=== PATIENT | male | born 1960 | race Hispanic/Latino ===

== ENCOUNTER → 2021-04-21 | Day surgery (SDC) | payer OTHER ==
[2021-04-16 09:15] LABS: BASOPHILS % 0.2 % (0.0-1.0); EOSINOPHILS # (AUTO) 0.2 (0.0-0.4); EOSINOPHILS % 4.2 % (0.0-6.0); HEMATOCRIT 43.2 % (38.2-49.6); HEMOGLOBIN 14.6 g/dL (14.0-18.0); LYMPHOCYTES % 44.6 % (18.0-39.1); MEAN CORPUSCULAR HEMOGLOBIN 30.2 pg (28-32); MEAN CORPUSCULAR HGB CONC 33.8 g/dL (31-35); MEAN CORPUSCULAR VOLUME 89.4 fL (81-99); MONOCYTES # (AUTO) 0.4 (0.2-0.8); MONOCYTES % 8.3 % (4.4-11.3); NEUTROPHILS # (AUTO) 1.9 (2.1-6.9); NEUTROPHILS % 42.5 % (38.7-80.0); PLATELET COUNT 206 x10e3/uL (140-360); RED BLOOD COUNT 4.83 x10e6/uL (4.3-5.7); RED CELL DISTRIBUTION WIDTH 12.4 % (11.7-14.4)
[2021-04-16 10:06] LABS: INR 1.02; PROTHROMBIN TIME 14.1 seconds (11.9-14.5)
[2021-04-16 10:07] LABS: PARTIAL THROMBOPLASTIN TIME 27.6 seconds (23.8-35.5)
[2021-04-16 10:48] LABS: ALBUMIN 4.2 g/dL (3.5-5.0); ALBUMIN/GLOBULIN RATIO 1.2 (0.8-2.0); ANION GAP 14.1 mmol/L (8-16); CALCIUM 9.1 mg/dL (8.4-10.2); CHOL/HDL RATIO 4.3 (3.9-4.7); CREATININE, SERUM 0.84 mg/dL (0.72-1.25); POTASSIUM 4.1 mmol/L (3.5-5.1)
[~2021-04-21] VITALS: Ht 167.6 cm; Wt 95.3 kg
[2021-04-21] VITALS (11 sets, daily range): BP systolic 116–137; BP diastolic 57–75
[~2021-04-21] MED LIST: FENTANYL CITRATE/PF 100MCG/2 ML INJ ONE; GLYBURIDE5 MG PO; HEPARIN SOD (PORCINE) 1000 UNIT/ML 30ML ONE; HEPARIN SOD/SOD CHLORIDE 2,000 ML ONE; IOPAMIDOL 370 MG/ML 200 ML INFUS..BTL INJ ONE; LIDOCAINE HCL 2% LOCAL 20 ML VIAL ONE; LIPITOR20 MG PO; LISINOPRIL10 MG PO; METFORMIN HCL500 MG PO; METOPROLOL SUCC50 MG PO; MIDAZOLAM HCL 2 MG/2 ML VIAL ONE; NITROGLYCERIN/D5W 200 MCG/ML 0 ML ONE; NITROGLYCERIN0.4 MG SL; SODIUM CHLORIDE 0.9% 1000ML 1,000 ML ONE; VERAPAMIL HCL 2.5 MG/ML 2 ML VIAL ONE
== END | disposition home or self-care (01) ==
LOC: CATH LAB 07:49
PROVIDERS: ATTEND Internal Medicine Cardiovascular Disease
DX: I25.810 Atherosclerosis of coronary artery bypass graft(s) without angina pectoris (principal); R94.39 Abnormal result of other cardiovascular function study; Z01.812 Encounter for preprocedural laboratory examination; Z20.822 Contact with and (suspected) exposure to COVID-19; Z79.84 Long term (current) use of oral hypoglycemic drugs; Z79.899 Other long term (current) drug therapy; Z95.1 Presence of aortocoronary bypass graft
CPT/HCPCS: 36415 ×2; 75605; 80053; 80061; 82948; 85025; 85610; 85730; 93459; C1760; C1769; C1894; J2001; J2250; J3010; J7030; Q9967; U0002; 99152; 99153; J1644

== ENCOUNTER 2024-12-19 12:15 | Inpatient (IN) | payer MEDICARE, OTHER ==
[~2024-12-19] VITALS: Ht 167.6 cm; Wt 93.4 kg
[~2024-12-19 12:15] MED LIST changes: -FENTANYL CITRATE/PF 100MCG/2 ML INJ ONE; -HEPARIN SOD (PORCINE) 1000 UNIT/ML 30ML ONE; -HEPARIN SOD/SOD CHLORIDE 2,000 ML ONE; -IOPAMIDOL 370 MG/ML 200 ML INFUS..BTL INJ ONE; -LIDOCAINE HCL 2% LOCAL 20 ML VIAL ONE; -MIDAZOLAM HCL 2 MG/2 ML VIAL ONE; -NITROGLYCERIN/D5W 200 MCG/ML 0 ML ONE; -SODIUM CHLORIDE 0.9% 1000ML 1,000 ML ONE; -VERAPAMIL HCL 2.5 MG/ML 2 ML VIAL ONE
[2024-12-19] MEDS: SODIUM CHLORIDE 0.9% 500ML 500 ML IV ONE (12:51)
[2024-12-19 12:52] LABS: BASOPHILS % 0.3 % (0.0-1.0); EOSINOPHILS % 3.3 % (0.0-6.0); LYMPHOCYTES % 37.8 % (18.0-39.1); MONOCYTES % 8.1 % (4.4-11.3); NEUTROPHILS % 50.0 % (38.7-80.0); RED CELL DISTRIBUTION WIDTH 12.6 % (11.7-14.4)
[2024-12-19 13:08] LABS: INR 0.93
[2024-12-19 13:16] LABS: EST GLOMERULAR FILTRATION RATE 100.0 ML/MIN (>=60)
[2024-12-19] MEDS: ASPIRIN 81 MG CHEW TAB PO ONE (13:48)
[2024-12-19] MEDS: CLOPIDOGREL BISULFATE 75 MG TAB PO ONE (13:48)
[2024-12-19] MEDS ORDERED: ONDANSETRON HCL INJ 2MG/ML 2ML 2 MG/ML VIAL IV PRN (14:00)
[2024-12-19] MEDS ORDERED: NITROGLYCERIN 0.4 MG SUBL SL PRN (14:00)
[2024-12-19] MEDS ORDERED: Morphine 2mg Syringe 2 MG/ML SYR IV PRN (14:00)
[2024-12-19 16:35] VITALS: PULSE 50; RESP 16; TEMP 97.9
[2024-12-19 17:05] VITALS: BP 165/72; PULSE 48; RESP 18; TEMP 99.2; O2SAT 98
[2024-12-19] MEDS ORDERED: ASPIRIN EC81 MG PO (18:26)
[2024-12-19 18:28] VITALS: BP 165/72; PULSE 48; RESP 18; TEMP 99.2; O2SAT 98
[2024-12-19 20:00] VITALS: BP 139/70; PULSE 50; RESP 18; TEMP 98.1; O2SAT 95
[2024-12-19] MEDS: ATORVASTATIN 40 MG TAB PO SCH (20:58)
[2024-12-19 21:24] VITALS: BP 139/70; PULSE 50; RESP 18; TEMP 98.1; O2SAT 95
[2024-12-20] VITALS: BP 140/54; PULSE 57; RESP 20; TEMP 97.9; O2SAT 97
[2024-12-20] MEDS ORDERED: DEXTROSE 50% SYRINGE 50 ML IV PRN (00:15)
[2024-12-20] MEDS ORDERED: ACETAMINOPHEN 325 MG TAB PO PRN (00:15)
[2024-12-20 04:00] VITALS: BP 140/53; PULSE 57; RESP 20; TEMP 98.1; O2SAT 100
[2024-12-20 05:06] LABS: BASOPHILS % 0.3 % (0.0-1.0); EOSINOPHILS % 4.1 % (0.0-6.0); LYMPHOCYTES % 47.9 % (18.0-39.1); MONOCYTES % 8.0 % (4.4-11.3); NEUTROPHILS % 39.7 % (38.7-80.0); RED CELL DISTRIBUTION WIDTH 12.4 % (11.7-14.4)
[2024-12-20 06:02] LABS: CHOL/HDL RATIO 3.8 (3.9-4.7); EST GLOMERULAR FILTRATION RATE 102.0 ML/MIN (>=60); LDL CHOLESTEROL 43.0 MG/DL (60-130)
[2024-12-20 07:37] VITALS: BP 144/64; PULSE 51; RESP 14; TEMP 98.2; O2SAT 100
[2024-12-20] MEDS: INSULIN LISPRO 100 UNIT/1 ML 3ML VIAL SQ SCH (08:15)
[2024-12-20] MEDS: CLOPIDOGREL BISULFATE 75 MG TAB PO SCH (08:17)
[2024-12-20] MEDS: ASPIRIN 81 MG ENTERIC COATED PO SCH (08:18)
[2024-12-20] MEDS: LISINOPRIL 10 MG TAB PO SCH (08:18)
[2024-12-20 08:25] VITALS: BP 144/64; PULSE 51; RESP 14; TEMP 98.2; O2SAT 100
[2024-12-20 12:00] VITALS: BP 145/68; PULSE 65; RESP 17; TEMP 98.4; O2SAT 96
[2024-12-20] MEDS ORDERED: PLAVIX75 MG PO (13:09)
[2024-12-20 16:00] VITALS: BP 144/61; PULSE 62; RESP 17; TEMP 98.2; O2SAT 97
== END 2024-12-20 19:05 | disposition home or self-care (01) | DRG 313 ==
LOC: ER 12:44 → ERHOLD 13:50 → MED/SURG2 16:51
PROVIDERS: ADMIT Internal Medicine; ATTEND Internal Medicine
DX: R07.89 Other chest pain (principal); I10 Essential (primary) hypertension; E11.65 Type 2 diabetes mellitus with hyperglycemia; E78.5 Hyperlipidemia, unspecified; D72.819 Decreased white blood cell count, unspecified; I25.10 Atherosclerotic heart disease of native coronary artery without angina pectoris; I71.9 Aortic aneurysm of unspecified site, without rupture; R00.1 Bradycardia, unspecified; R06.02 Shortness of breath; R20.0 Anesthesia of skin; Z79.82 Long term (current) use of aspirin; Z79.02 Long term (current) use of antithrombotics/antiplatelets; Z79.4 Long term (current) use of insulin; Z79.84 Long term (current) use of oral hypoglycemic drugs; Z95.1 Presence of aortocoronary bypass graft; Z87.891 Personal history of nicotine dependence
CPT/HCPCS: 36415; 71045; 80053; 80061; 82550; 82948; 83036; 83735; 83880; 84484; 85025; 85610; 85730; 93005; 93306; 99284; J7040